=== PATIENT | female | born 1940 | race Caucasian/White ===

== ENCOUNTER 2017-11-25 12:58 | Emergency (ER) | payer MEDICARE, OTHER ==
[2017-11-25] MEDS: METHYLPREDNISOLONE 125 MG INJ IM (16:22)
== END 2017-11-25 17:57 | disposition home or self-care (01) ==
LOC: FTE 12:58
DX: M19.90 Unspecified osteoarthritis, unspecified site (principal); I10 Essential (primary) hypertension; G30.9 Alzheimer's disease, unspecified; E03.9 Hypothyroidism, unspecified
CPT/HCPCS: 73110; 73110-RT; 96372; 99284-25